=== PATIENT | male | born 1950 | race Caucasian/White ===

== ENCOUNTER 2025-01-07 08:54 | Observation (INO) | payer MEDICARE ==
[2025-01-05 14:53] LABS: MEAN PLATELET VOLUME 7.4 FL (7.4-10.4); PRE OP HEMATOCRIT 36.0 % (42.0-52.0); PRE OP HEMOGLOBIN 12.0 g/dL (14.0-17.9); PRE OP PLATELET COUNT 311 X10'3 (140-440); PRE OP WHITE BLOOD COUNT 11.8 10'3 (4.8-10.8); RED CELL DISTRIBUTION WIDTH 15.2 % (11.5-14.5)
[2025-01-05 15:08] LABS: CREATININE 4.03 MG/DL (0.60-1.10); PRE OP ALT 63 U/L (30-65); PRE OP ANION GAP 16 (8-16); PRE OP AST 43 U/L (10-37); PRE OP BILIRUB, TOTAL 0.6 MG/DL (0.0-1.0); PRE OP GLUCOSE 110 MG/DL (70-104); PRE OP POTASSIUM 4.8 MMOL/L (3.4-5.1); PRE OP SODIUM 136 MMOL/L (135-145); TOTAL CARBON DIOXIDE 15.2 MMOL/L (24-32); eGFR 15 ML/MIN
[2025-01-07] VITALS (21 sets, daily range): BP systolic 91–144; BP diastolic 40–61; PULSE 61–74; RESP 10–18; TEMP 97–98.3; O2SAT 96–100
[~2025-01-07] VITALS: Ht 175.3 cm; Wt 121.1 kg
[2025-01-07] MEDS: CEFAZOLIN 3GM/DEXTROSE 150mL 150 ML IV ONE (05:30)
[2025-01-07] MEDS: DOCUMENT DATE & TIME OF BETA-BLOCKER PO ONE (07:00)
[~2025-01-07 08:54] MED LIST: DICL-182 PO; DILT180C49 PO; FINA5TAB11 PO; LEVO125T68 PO; METO50TA17 PO; OLME-31 PO; ROSU40TA89 PO; TAMS-55 PO
[2025-01-07] MEDS: normal saline 500ml IV soln 500 ML IV SCH (10:03)
[2025-01-07] MEDS ORDERED: fluoroscein sod 10% (100mg/ml) 5ml vial ONE (10:44)
[2025-01-07] MEDS ORDERED: BUPIVAcaine 0.25% w/Epi /PF 30ml vial ONE ×2 (10:44→11:02)
[2025-01-07] MEDS ORDERED: INDOCYANINE GREEN 25 MG/10 ML VIAL IV ONE (10:44)
[2025-01-07] MEDS ORDERED: BUPIVACAINE liposomal/PF 13.3 MG/ML 10mL vial IM ONE ×2 (10:45→11:03)
[2025-01-07] MEDS ORDERED: fentaNYL /PF 50mcg/ml 5ml ampule ONE (12:43)
[2025-01-07] MEDS ORDERED: MIDAZolam 1 MG/ML 5ML VIAL ONE (12:43)
[2025-01-07] MEDS ORDERED: ePHEDrine 50MG/ML INJ. ONE (12:56)
[2025-01-07] MEDS ORDERED: albumin (Human) 5% 250ml 250 ML IV ONE ×3 (12:56→14:55)
[2025-01-07] MEDS ORDERED: acetaminophen 1,000mg/100ml IV 0 ML IV ONE (12:56)
[2025-01-07] MEDS ORDERED: rocuronium 10mg/ml inj IV ONE ×2 (12:57)
[2025-01-07] MEDS ORDERED: propofol inj 20 ML IV ONE (12:57)
[2025-01-07] MEDS ORDERED: ondansetron/PF 4mg/2ml inj ONE (12:57)
[2025-01-07] MEDS ORDERED: acetaminophen 1,000mg/100ml IV 100 ML IV ONE (12:59)
[2025-01-07] MEDS ORDERED: desflurane 240ml liquid inh. IH ONE (13:12)
[2025-01-07] MEDS: bupivacaine 0.25%/epinephrine 1:200,000 inj (contains preserv. MDV) IJ ONE (13:13)
[2025-01-07] MEDS ORDERED: fentaNYL/PF 50MCG/1 ML 2ML syringe IV PRN ×2 (14:00)
[2025-01-07] MEDS ORDERED: ondansetron/PF 4mg/2ml inj IV PRN ×2 (14:00→15:40)
[2025-01-07] MEDS ORDERED: enalaprilat 1.25mg/ml 2ml vial IV PRN (14:00)
[2025-01-07] MEDS ORDERED: morphine 4 MG/ML inj SYRINge IV PRN (14:00)
[2025-01-07] MEDS: ringers solution, lacted 1,000 ML IV SCH (14:00)
[2025-01-07] MEDS ORDERED: labetalol 20mg/4ml (5mg/ml) syringe IV PRN (14:00)
[2025-01-07] MEDS ORDERED: HYDROcodone/acetaminophen 5mg/325mg tablet PO PRN (15:40)
[2025-01-07] MEDS ORDERED: magnesium hydroxide 30ml (MOM) UD suspension PO PRN (15:40)
[2025-01-07] MEDS ORDERED: mag hydrox/Alum hydrox/simeth 30ml oral suspension PO PRN (15:40)
--- NOTE | 2025-01-07 15:53 | OPERATIVE REPORT ---
Operative Report Providers to ~ Date of Procedure: Jan 07, 2025 Pre-Operative Diagnosis: Prostate cancer Post-Operative Diagnosis SAME as PRE-Op Procedure Performed Radical prostatectomy Surgeon: MD Sweetie [employer] MD Fatuma Christianson NP Type of Anesthesia: General Findings: Prostate removed Complications None Prosthetics\Implants used: None Estimated Blood Loss: Less than 100 cc Specimen Removed: Prostate Description of Procedure: Patient was brought to the operating room, given a general anesthetic, and placed in the supine position. He was prepped and draped in the normal sterile fashion. A timeout was performed. A dejesus catheter was placed. An incision was made above the umbilicus. Verass needle was used the insuflate the abdomen. Then an 8 bahamian robotic port was placed. We then placed 3 more robotic ports lateral to the median port. On the right a 12 bahamian internet marketing assistant port was placed under direct visualization. The patient was put into steep trendelenburg and the robot was docked. With the robot docked I used sharp dissection to drop the sigmoid colon. Once the sigmoid colon was dropped I made an incision in the peritoneum posteriorly and dissected to the seminal vesicles and vas deferns bilaterally. Once I was there I was able to dissect the posterior plan. Vas deferns were dissected bilaterally. I next turned my attention to the bladder. I dropped the bladder and approached the prostate from above opening the endopelvic fascia bilaterally with sharp dissection. Once this was completed and all pelvic floor muscles were brushed off the prostate I next turned to taking the bladder neck. Electrocautery was used to dissect the bladder neck until the catheter was reached, at which point the catheter was pulled up and the posterior bladder neck was dissected. Seminal vesicles and vas deferns bilaterally were both pulled up at this point. I next continued fully dissecting the posterior. The pedicles were taken at this point and the nerves were spared. I then used sharp dissection to take the dorsal venous complex, using a 3-0 v-lock suture to close the sinuses. The rest of the urethra was then taken with sharp dissection. The prostate was now free and moved out of the way, and double armed 3-0 v-loc suture was used to approximate the bladder neck to the urethra. I did this circumstantially until it was complete. This was tested with a new dejesus catheter and was water tight. The prostate was placed in a specimen bag and the robot was undocked. The incision over the umbilicus was increased to allow the prostate to be removed, at which point it was removed. 2-0 vicryl suture was used to close the fascia, local anesthetic was injected into each wound, and 4-0 monocryl suture was used to close the skin with dermabond glue on the skin level. JESSE FRAZIER MD Jan 07, 2025 15:53
[2025-01-07] MEDS: docusate sod 100mg capsule PO SCH (19:54)
[2025-01-07] MEDS: heparin, porcine 5000 units/ml vial SQ SCH (19:55)
[2025-01-07] MEDS: HYDROmorphone inj. 0.5 MG/0.5 ML DISP.SYRIN IV PRN (22:14)
[2025-01-08 02:00] VITALS: BP 149/56; PULSE 74; RESP 20; TEMP 97.5; O2SAT 98
[2025-01-08 04:36] LABS: MEAN PLATELET VOLUME 7.3 FL (7.4-10.4); RED CELL DISTRIBUTION WIDTH 14.8 % (11.5-14.5)
[2025-01-08 05:00] LABS: CREATININE 3.68 MG/DL (0.60-1.10); TOTAL CARBON DIOXIDE 16.8 MMOL/L (24-32); eCRCL 18 ML/MIN; eGFR 16 ML/MIN
[2025-01-08 06:00] VITALS: BP 151/59; PULSE 70; RESP 16; TEMP 98.3; O2SAT 97
--- NOTE | 2025-01-08 07:56 | DISCHARGE SUMMARY ---
Discharge Summary Providers to CC ~ Discharge Summary Assessment Prostate cancer now s/p radical prostatectomy. Doing well and recovering as expected. Admission Diagnosis: Prostate cancer Hospital Course DATE OF ADMISSION: 01/07/25 DATE OF DISCHARGE: 01/08/25 Discharge Diagnosis\Comment: Prostate cancer Operations\Procedures: 01/07/25: Robotic assisted radical prostatectomy Consultants: None Complications: None Condition on DC: Stable Discharge Summary: Patient was admitted after surgery for post-operative care. He tolerated a diet and ambulated with pain controlled. His labs were stable in the morning. Overall he is recovering as expected. General: Awake and Alert, no acute distress. HEENT: Conjunctiva pink, Sclera clear, Mucus Membranes moist. Neck: Supple without masses and tenderness. Resp: Unlabored. Heart: Regular Rate and rhythm Abdomen: Soft and non tender no organomegaly, incisions clean, dry, and intact. Extremities: No cyanosis,clubbing or edema. Skin: Warm and Dry. *Problems/Diagnosis: (1) Prostate cancer Status: Chronic Assessment & Plan: Prostate cancer s/p radical prostatectomy. Safe for discharge home today. Catheter to remain in place for 1 week. Will arrange for outpatient follow-up. Total Time Spent on D/C: Up to 30 Minutes JESSE FRAZIER MD Jan 08, 2025 07:56
== END 2025-01-08 09:55 | disposition home or self-care (01) ==
LOC: PAS 08:54 → INTOOBSV 15:41 → PAS IN 15:41 → SUR 3N 16:45
PROVIDERS: ADMIT Urology; ATTEND Urology
DX: C61 Malignant neoplasm of prostate (principal); Z79.899 Other long term (current) drug therapy; Z98.890 Other specified postprocedural states
CPT/HCPCS: 55866; 80048; 80053; 82948; 86885; 86900; 86901; 96372; 96374; A4215; A4618; A5200; A6250; G0378; J0666; J1171; J3490; J7120; 36415; 85025; 87081; A4338; A4357; J0131; J0665; J1100; J1644; J2003; J2250; J2405; J2704; J3010; J7030; J7040; P9045